=== PATIENT | male | born 1945 | race Two or more races ===

== ENCOUNTER → 2017-10-23 | Outpatient (CLI) | payer OTHER ==
[~2017-10-23] VITALS: Ht 170.2 cm; Wt 65.9 kg
[~2017-10-23] MED LIST: ATOR40TA28 PO; LIDOCAINE HCL 2% 5 ML JELLY ONE; METF500T4 PO; RIVA20TA PO; TAMS0.4C32 PO
[2017-10-23 10:20] VITALS: BP 111/65
== END | disposition home or self-care (01) ==
LOC: HBOWC 09:50
PROVIDERS: ATTEND Podiatrist
DX: L97.521 Non-pressure chronic ulcer of other part of left foot limited to breakdown of skin (principal)
CPT/HCPCS: 11042; G0463

== ENCOUNTER → 2017-12-23 | Outpatient (CLI) | payer OTHER ==
[~2017-12-23] MED LIST changes: +CLOP75 PO; -LIDOCAINE HCL 2% 5 ML JELLY ONE
[2017-12-23 11:11] VITALS: BP 123/51
== END | disposition home or self-care (01) ==
LOC: HBOWC 09:56
PROVIDERS: ATTEND Internal Medicine
DX: E11.621 Type 2 diabetes mellitus with foot ulcer (principal); L97.521 Non-pressure chronic ulcer of other part of left foot limited to breakdown of skin

== ENCOUNTER → 2017-12-30 | Outpatient (CLI) | payer OTHER ==
[2017-12-30 11:44] VITALS: BP 120/62
== END | disposition home or self-care (01) ==
LOC: HBOWC 10:54
PROVIDERS: ATTEND Internal Medicine
DX: E11.621 Type 2 diabetes mellitus with foot ulcer (principal); L97.521 Non-pressure chronic ulcer of other part of left foot limited to breakdown of skin